=== PATIENT | male | born 1960 | race Caucasian/White ===

== ENCOUNTER 2018-02-23 04:54 | Emergency (ER) | END 2018-02-23 09:03 | disposition home or self-care (01) ==

== ENCOUNTER 2018-09-08 18:26 | Emergency (ER) | payer BC ==
[~2018-09-08] VITALS: Wt 95.7 kg
[~2018-09-08 18:26] MED LIST: ATEN-138 PO; AZIT250T PO; BACI28.34 TOP; BEN25 PO; CEPH-443 PO; ELIM TOP; FIORICET PO; HYDR-842 PO; HYDR-843 PO; PRED20TA PO
[2018-09-08 18:37] VITALS: BP 183/91; PULSE 69; RESP 18
[2018-09-08] MEDS ORDERED: IBUP-1542 PO (19:51)
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
== END 2018-09-08 20:01 | disposition home or self-care (01) ==
LOC: FTE 18:26
DX: E11.8 Type 2 diabetes mellitus with unspecified complications (principal); R20.2 Paresthesia of skin; M54.5 Low back pain; I10 Essential (primary) hypertension
CPT/HCPCS: 82962; 93005